=== PATIENT | female | born 1995 | race Caucasian/White ===

== ENCOUNTER 2017-12-23 09:27 | Emergency (ER) | payer OTHER ==
[~2017-12-23] VITALS: Ht 165.1 cm; Wt 87.5 kg
[~2017-12-23 09:27] MED LIST: AUGMENTIN 875875 MG PO
[2017-12-23 09:33] VITALS: BP 132/86
[2017-12-23] MEDS ORDERED: AMOXICILLIN500 M1 PO (09:45)
== END 2017-12-23 09:59 | disposition home or self-care (01) ==
LOC: M.ERS 09:27
DX: H66.91 Otitis media, unspecified, right ear (principal); Z88.5 Allergy status to narcotic agent

== ENCOUNTER 2018-01-28 14:26 | Emergency (ER) | payer OTHER ==
[~2018-01-28] VITALS: Ht 165.1 cm; Wt 87.5 kg
[~2018-01-28 14:26] MED LIST changes: +AMOXICILLIN500 M1 PO
[2018-01-28] MEDS ORDERED: UNICOMPLEX M TA1 TA1 PO (14:38)
[2018-01-28] MEDS ORDERED: AMOXICILLIN500 M1 PO (14:55)
[2018-01-28 14:56] LABS: URINE BILIRUBIN NEGATIVE (Negative); URINE BLOOD 3+ (Negative); URINE CLARITY CLEAR; URINE COLOR YELLOW; URINE GLUCOSE-RANDOM TRACE (Negative); URINE KETONES NEGATIVE (Negative); URINE LEUKOCYTES-REFLEX NEGATIVE (Negative); URINE NITRITE-REFLEX NEGATIVE (Negative); URINE PROTEIN TRACE (Negative); URINE SPECIFIC GRAVITY >= 1.030 (1.005-1.030); URINE UROBILINOGEN 0.2 E.U./dl (0.2-1.0)
[2018-01-28 15:12] LABS: MUCUS 0-3 Light strn/LPF (None Seen); SQUAMOUS >10 Many /LPF (0-3)
[2018-01-28 15:14] LABS: BACTERIA-REFLEX 1-9 Few /HPF (None Seen); CASTS None Seen /LPF (None Seen); CRYSTALS None Seen /LPF (None Seen); URINE WBC-REFLEX 0-5 Rare /HPF (0-5)
[2018-01-28 15:27] VITALS: BP 126/83
== END 2018-01-28 15:29 | disposition home or self-care (01) ==
LOC: M.ERS 14:26
PROVIDERS: Physician Assistant
DX: O99.511 Diseases of the respiratory system complicating pregnancy, first trimester (principal); O26.891 Other specified pregnancy related conditions, first trimester; R31.9 Hematuria, unspecified; Z3A.00 Weeks of gestation of pregnancy not specified; Z88.5 Allergy status to narcotic agent

== ENCOUNTER 2018-03-23 17:08 | Emergency (ER) | payer OTHER ==
[~2018-03-23] VITALS: Ht 165.1 cm; Wt 84.4 kg
[~2018-03-23 17:08] MED LIST changes: +UNICOMPLEX M TA1 TA1 PO
[2018-03-23] MEDS ORDERED: PRENATAL PO (17:21)
[2018-03-23] MEDS ORDERED: TYLENOL325 MG PO (17:21)
[2018-03-23 17:35] VITALS: BP 132/79
== END 2018-03-23 17:36 | disposition home or self-care (01) ==
LOC: M.ERS 17:08
DX: O99.512 Diseases of the respiratory system complicating pregnancy, second trimester (principal); J06.9 Acute upper respiratory infection, unspecified; Z88.5 Allergy status to narcotic agent; Z3A.17 17 weeks gestation of pregnancy